=== PATIENT | female | born 1995 | race Caucasian/White ===

== ENCOUNTER 2020-09-08 12:31 | Emergency (ER) | payer OTHER ==
[2020-09-08 13:31] LABS: BILIRUBIN NEGATIVE (NEGATIVE); BLOOD NEGATIVE Ery/uL (NEGATIVE); CLARITY CLEAR (CLEAR); COLOR YELLOW (YELLOW); GLUCOSE (U) NORMAL (NORMAL); LEUKOCYTES NEGATIVE Leu/uL (NEGATIVE); NITRITE NEGATIVE (NEGATIVE); PROTEIN TRACE (LOW) mg/dL (NEGATIVE); UROBILINOGEN 0.2 mg/dL (0.2-1.0)
[2020-09-08 13:38] LABS: BACTERIA 1+
[2020-09-08 13:41] LABS: BASOPHIL 0.6 % (0-2); EOSINOPHIL 0.7 % (0-5); HCT 40.8 % (37.0-47.0); HGB 13.8 g/dl (12.5-16.0); LYMPHOCYTE 20.7 % (15-48); MCH 31.4 pg (25.0-31.0); MCHC 33.8 g/dL (32.0-36.0); MCV 92.7 fL (78.0-100.0); MONOCYTE 5.2 % (0-12); MPV 10.2 fL (6.0-9.5); NEUTROPHIL 72.5 % (41-80); NRBC 0; PLT 284 K/uL (150-400); RDW 12.5 % (11.5-14.0); WBC 8.7 K/uL (4.0-10.5)
[2020-09-08 14:00] LABS: BUN/CREAT RATIO (CALC) 21.1 RATIO; CREATININE 0.76 mg/dL (0.51-0.95); POTASSIUM 3.9 mmol/L (3.5-5.1)
[2020-09-08 14:07] LABS: AMPHETAMINES NEGATIVE (NEGATIVE); BARBITURATES NEGATIVE (NEGATIVE); ECSTASY (MDMA) NEGATIVE (NEGATIVE); MARIJUANA (THC) NEGATIVE (NEGATIVE); METHADONE NEGATIVE (NEGATIVE); OPIATES NEGATIVE (NEGATIVE); OXYCODONE NEGATIVE (NEGATIVE)
== END 2020-09-08 18:15 | disposition home or self-care (01) ==
LOC: FER 12:31
PROVIDERS: Emergency Medicine; Nurse Practitioner Family
DX: R55 Syncope and collapse (principal); R00.1 Bradycardia, unspecified
CPT/HCPCS: 36415; 70450; 80048; 80305; 81001; 85025; 87088; 93005; J7030

== ENCOUNTER 2020-10-03 18:39 | Emergency (ER) | payer OTHER ==
[2020-10-03 19:28] LABS: BILIRUBIN NEGATIVE (NEGATIVE); BLOOD 3+ Ery/uL (NEGATIVE); CLARITY CLOUDY (CLEAR); COLOR YELLOW (YELLOW); GLUCOSE (U) NORMAL (NORMAL); LEUKOCYTES 3+ Leu/uL (NEGATIVE); NITRITE POSITIVE (NEGATIVE); PROTEIN 2+ mg/dL (NEGATIVE); SPECIFIC GRAVITY 1.025 (1.001-1.030); UROBILINOGEN 0.2 mg/dL (0.2-1.0)
[2020-10-03 19:34] LABS: URINARY WBC TNTC
[2020-10-03 19:35] LABS: BACTERIA 2+
[2020-10-03 19:37] LABS: BASOPHIL 0.6 % (0-2); EOSINOPHIL 0.8 % (0-5); LYMPHOCYTE 18.2 % (15-48); MCH 31.7 pg (25.0-31.0); MCHC 34.1 g/dL (32.0-36.0); MCV 92.8 fL (78.0-100.0); MONOCYTE 7.7 % (0-12); MPV 10.4 fL (6.0-9.5); NEUTROPHIL 72.4 % (41-80); NRBC 0; PLT 259 K/uL (150-400); RBC 4.42 M/uL (4.20-5.40); RDW 12.7 % (11.5-14.0); WBC 13.1 K/uL (4.0-10.5)
[2020-10-03 20:07] LABS: ALBUMIN 4.3 g/dL (3.4-5.0); POTASSIUM 3.8 mmol/L (3.5-5.1)
[2020-10-03 20:22] LABS: BILIRUBIN - TOTAL 0.4 mg/dL (0.2-1.0); CREATININE 0.69 mg/dL (0.51-0.95); GLOBULIN (CALCULATION) 3.7 g/dL
[2020-10-03] MEDS ORDERED: BACTRIM DS TAB1 EACH PO (22:02)
== END 2020-10-03 22:15 | disposition home or self-care (01) ==
LOC: FER 18:39
PROVIDERS: Nurse Practitioner Family
DX: N30.00 Acute cystitis without hematuria (principal)
CPT/HCPCS: 36415; 80053; 81001; 85025; 87076; 87088; 87186; J0696; J7030